=== PATIENT | female | born 1940 | race Caucasian/White ===

== ENCOUNTER → 2023-12-25 11:27 | Outpatient (REF) | payer OTHER, SELFPAY ==
[2023-12-25 14:27] LABS: % Basophils 0.8 % (0-2); % Eosinophils 2.3 % (0-6); % Immature Granulocytes 0.3 % (0-0.5); % Lymphocytes 27.5 % (20.5-51.1); % Monocytes 7.9 % (1.7-9.3); % Neutrophils 61.2 % (42.2-75.2); Absolute Basophils 0.1 10^3/uL (0-0.2); Absolute Eosinophils 0.2 10^3/uL (0-0.7); Absolute Lymphocytes 2.5 10^3/uL (1.2-3.4); Absolute Monocytes 0.7 10^3/uL (0.1-0.6); Absolute Neutrophils 5.6 10^3/uL (1.4-6.5); Hematocrit 42.3 % (37.0-47.0); Hemoglobin 14.4 g/dL (12.0-16.0); Mean Corpuscular Hgb 29.3 pg (27.0-31.0); Mean Platelet Volume 9.1 fL (7.4-10.4); Nucleated Red Blood Cells % 0 %; Platelet Count 338 10^3/uL (130-400); Red Blood Cell Count 4.92 10^6/uL (4.20-5.40); Red Cell Dist. Width 13.7 % (11.5-14.5); White Blood Cell Count 9.2 10^3/uL (4.8-10.8)
[2023-12-25 14:54] LABS: ALT (SGPT) 19 U/L (0-35); AST (SGOT) 25 U/L (14-36); Albumin 4.3 g/dl (3.5-5.0); Alkaline Phosphatase 68 U/L (38-126); Blood Urea Nitrogen 10 mg/dl (7-17); Calcium 9.7 mg/dl (8.4-10.2); Carbon Dioxide 25 mmol/L (22-30); Chloride 102 mmol/L (98-107); Glucose 101 mg/dl (70-99); HDL Cholesterol 105 mg/dl; LDL Cholesterol, Calculated 69 mg/dl; Potassium 3.9 mmol/L (3.5-5.1); Sodium 138 mmol/L (135-145); Total Cholesterol 190 mg/dl (50-199); Triglyceride 82 mg/dl (10-149); Very Low Density Lipoprotein 16 mg/dl (0-30); eGFR > 60.00
[2023-12-25 15:10] LABS: Vitamin D, 25-OH*** 16.2 ng/mL (30-80)
[2023-12-25 15:11] LABS: Free T4 1.94 ng/dl (0.78-2.19)
[2023-12-25 15:24] LABS: TSH 1.58 uIU/ml (0.47-4.68)
== END ==
LOC: HWRAD 11:27
PROVIDERS: ATTENDING PHYSICIAN Internal Medicine Geriatric Medicine; REFERRING PHYSICIAN Psychiatry & Neurology Psychiatry
DX: I10 Essential (primary) hypertension (principal); E03.9 Hypothyroidism, unspecified; E78.2 Mixed hyperlipidemia; I34.0 Nonrheumatic mitral (valve) insufficiency; G89.4 Chronic pain syndrome; E55.9 Vitamin D deficiency, unspecified; K21.9 Gastro-esophageal reflux disease without esophagitis; R31.9 Hematuria, unspecified; Z13.31 Encounter for screening for depression; N94.819 Vulvodynia, unspecified
CPT/HCPCS: 36415; 80053; 80061; 82306; 84439; 84443; 85025

== ENCOUNTER → 2024-10-07 10:56 | Outpatient (REF) | payer OTHER, SELFPAY ==
[2024-10-07 16:03] LABS: % Basophils 0.8 % (0-2); % Eosinophils 2.5 % (0-6); % Immature Granulocytes 0.3 % (0-0.5); % Lymphocytes 34.8 % (20.5-51.1); % Neutrophils 50.6 % (42.2-75.2); Absolute Basophils 0.1 10^3/uL (0-0.2); Absolute Eosinophils 0.2 10^3/uL (0-0.7); Absolute Lymphocytes 2.1 10^3/uL (1.2-3.4); Absolute Monocytes 0.7 10^3/uL (0.1-0.6); Absolute Neutrophils 3.1 10^3/uL (1.4-6.5); Hematocrit 43.2 % (37.0-47.0); Hemoglobin 14.6 g/dL (12.0-16.0); Mean Corp Hgb Conc. 33.8 g/dL (33.0-37.0); Mean Corpuscular Hgb 30.3 pg (27.0-31.0); Mean Corpuscular Volume 89.6 fL (81.0-99.0); Mean Platelet Volume 9.5 fL (7.4-10.4); Nucleated Red Blood Cells % 0 %; Platelet Count 281 10^3/uL (130-400); Red Blood Cell Count 4.82 10^6/uL (4.20-5.40); Red Cell Dist. Width 13.2 % (11.5-14.5); White Blood Cell Count 6.1 10^3/uL (4.8-10.8)
[2024-10-07 16:19] LABS: ALT (SGPT) 21 U/L (0-35); AST (SGOT) 27 U/L (14-36); Albumin 4.6 g/dl (3.5-5.0); Alkaline Phosphatase 67 U/L (38-126); Blood Urea Nitrogen 10 mg/dl (7-17); Calcium 9.6 mg/dl (8.4-10.2); Carbon Dioxide 28 mmol/L (22-30); Chloride 103 mmol/L (98-107); Glucose 85 mg/dl (70-99); HDL Cholesterol 101 mg/dl; LDL Cholesterol, Calculated 85 mg/dl; Potassium 3.9 mmol/L (3.5-5.1); Sodium 140 mmol/L (135-145); Total Bilirubin 1.1 mg/dl (0.2-1.3); Total Cholesterol 198 mg/dl (50-199); Total Protein 7.3 g/dl (6.3-8.2); Triglyceride 64 mg/dl (10-149); Very Low Density Lipoprotein 12 mg/dl (0-30); eGFR > 60.00
[2024-10-07 16:36] LABS: Free T4 1.72 ng/dl (0.78-2.19); Vitamin D, 25-OH*** 13.7 ng/mL (30-80)
[2024-10-07 16:50] LABS: TSH 1.34 uIU/ml (0.47-4.68)
== END ==
LOC: HWLAB 10:56
PROVIDERS: ATTENDING PHYSICIAN Internal Medicine Geriatric Medicine; REFERRING PHYSICIAN Psychiatry & Neurology Psychiatry
DX: I48.0 Paroxysmal atrial fibrillation (principal); I10 Essential (primary) hypertension; E78.2 Mixed hyperlipidemia; E03.9 Hypothyroidism, unspecified; I34.0 Nonrheumatic mitral (valve) insufficiency; G89.4 Chronic pain syndrome; E55.9 Vitamin D deficiency, unspecified; K21.9 Gastro-esophageal reflux disease without esophagitis; R31.9 Hematuria, unspecified; N94.819 Vulvodynia, unspecified; Z13.31 Encounter for screening for depression; Z99.89 Dependence on other enabling machines and devices; R30.0 Dysuria
CPT/HCPCS: 36415; 80053; 80061; 82306; 84439; 84443; 85025

== ENCOUNTER → 2025-01-08 14:26 | Outpatient (REF) | payer OTHER, SELFPAY ==
[2025-01-08 16:30] LABS: Urine Albumin 2+ (Neg - Trace); Urine Bilirubin Negative (Negative); Urine Character Slightly Cloudy (Clear); Urine Color Yellow; Urine Glucose Negative (Negative); Urine Ketone Negative (Negative); Urine Leukocyte 3+ (Negative); Urine Nitrite Negative (Negative); Urine Occult Blood 4+ (Negative); Urine Specific Gravity 1.015 (<1.030); Urine Urobilinogen Negative (Neg - 1+)
[2025-01-08 16:37] LABS: Urine Squamous Cell >30 /LPF (Few)
[2025-01-08 16:38] LABS: Urine Bacteria Few (Negative); Urine White Cell >100 /HPF (0-5)
== END ==
LOC: CLAB 14:26
PROVIDERS: ATTENDING PHYSICIAN Internal Medicine Geriatric Medicine
DX: R31.9 Hematuria, unspecified (principal)
CPT/HCPCS: 81003; 81015; 87077; 87086